=== PATIENT | female | born 1950 | race Caucasian/White ===

== ENCOUNTER 2016-08-12 07:49 | Observation (INO) | payer OTHER ==
[~2016-08-12 07:49] MED LIST: CLINDAMYCIN 900 MG/DEXTROSE 50 ML IV ONE; LR 1,000 ML IV ONE; PHENAZOPYRIDINE HCL 200 MG TAB PO ONE; SCOPOLAMINE HYDROBROMIDE 1.5 MG PATCH TD ONE; levOFLOXACIN 500 MG/DEXTROSE 100 ML IV ONE
[2016-08-12] MEDS ORDERED: SCOPOLAMINE HYDROBROMIDE 1.5 MG PATCH TD ONE (08:09)
[2016-08-12] MEDS ORDERED: PHENAZOPYRIDINE HCL 200 MG TAB ONE (08:09)
[2016-08-12] MEDS ORDERED: LIDOCAINE 1% 5 ML SDV ID PRN (08:59)
[2016-08-12] MEDS ORDERED: LR 1,000 ML IV ONE (08:59)
[2016-08-12] MEDS ORDERED: CLINDAMYCIN 900 MG/DEXTROSE/50 ML BAG IV ONE (09:08)
[2016-08-12] MEDS ORDERED: levOFLOXACIN 500 MG/DEXTROSE/100 ML BAG IV ONE (09:09)
[2016-08-12] MEDS ORDERED: BUPIVACAINE/EPI 0.5% 30 ML SDV ONE (09:40)
[2016-08-12] MEDS ORDERED: SKIN ADHESIVE (DERMABOND) 1 EACH TP ONE (09:40)
[2016-08-12] MEDS ORDERED: MIDAZOLAM 2 MG/2 ML VIAL ONE (09:45)
[2016-08-12] MEDS ORDERED: PROPOFOL/EMULSION 500 MG/50 ML BOTTLE IV ONE ×3 (10:01→10:40)
[2016-08-12] MEDS ORDERED: fentaNYL 250 MCG/5 ML INJ ONE (10:02)
[2016-08-12] MEDS ORDERED: ROCURONIUM 100 MG/10 ML VIAL ONE (12:14)
[2016-08-12] MEDS ORDERED: KETOROLAC 30 MG/1 ML SDV ONE (12:15)
[2016-08-12] MEDS ORDERED: LIDOCAINE 2% 5 ML SDV ONE (12:15)
[2016-08-12] MEDS ORDERED: DEXAMETHASONE 4 MG/ML VIAL ONE (12:15)
[2016-08-12] MEDS ORDERED: ONDANSETRON 4 MG/2 ML VIAL ONE ×2 (12:15→12:58)
[2016-08-12] MEDS ORDERED: SALMETEROL IH PRN (12:34)
[2016-08-12] MEDS ORDERED: ALBUTEROL 60 PUFFS/8 GM MDI IH PRN (12:34)
[2016-08-12] MEDS ORDERED: FLUTICASONE IH PRN (12:34)
[2016-08-12] MEDS ORDERED: clonazePAM 0.5 MG TAB PO PRN (12:34)
[2016-08-12] MEDS ORDERED: DIAZEPAM 10 MG/2 ML SYR IVP PRN (12:35)
[2016-08-12] MEDS ORDERED: ONDANSETRON 4 MG/2 ML VIAL IVP PRN (12:35)
[2016-08-12] MEDS ORDERED: HYDROCODONE/APAP 5/325 TAB PO PRN (12:35)
--- NOTE | 2016-08-12 12:43 | POSTOPPROG ---
Post Op Note Date of Operation: 08/12/16 Surgeon: Berto Ospina Policyholder Information Clerk: Solange Vora Anesthesia: GET(General Endotracheal) Pre-op Diagnosis: Uterovaginal prolapse, stress incontinence Post-op Diagnosis: Same Procedure: Robotic hyst, BSO, sacrocolpopexy, TOT sling, cysto Findings: Normal ureteral function at end of case Inf/Abcess present in the surg proc area at time of surgery?: No EBL: Minimal Complications: None Specimen(s): Uterus, no cervix, bilat tubes and ovaries
[2016-08-12] MEDS ORDERED: PROMETHAZINE HCL 25 MG/ML INJ ONE (12:48)
[2016-08-12] MEDS ORDERED: LR 1,000 ML IV SCH (13:00)
[2016-08-12] MEDS ORDERED: fentaNYL 100 MCG/2 ML INJ ONE (13:02)
--- NOTE | 2016-08-12 13:53 | GOP ---
[f rep st] OPERATIVE REPORT DATE OF OPERATION: SURGEON: Berto Ospina MD FULL STACK SOFTWARE ENGINEER: Solange Vora CFA ANESTHESIA: General. PREOPERATIVE DIAGNOSIS: 1. Uterine prolapse. 2. Cystocele. 3. Rectocele. 4. Stress urinary incontinence. POSTOPERATIVE DIAGNOSIS: 1. Uterine prolapse. 2. Cystocele. 3. Rectocele. 4. Stress urinary incontinence. PROCEDURE PERFORMED: 1. Robotic-assisted laparoscopic hysterectomy, bilateral salpingo-oophorectomy. 2. Robotic-assisted laparoscopic sacrocervicopexy with mesh. 3. Repair of cystocele and rectocele. 4. Transobturator sling. 5. Cystoscopy. FINDINGS: SPECIMENS: Uterus, bilateral tubes, and ovaries. ESTIMATED BLOOD LOSS: Scant. DESCRIPTION OF PROCEDURE: The patient was taken to the operating room where she was identified. Gen eral anesthesia was administered and found to be adequate. She was placed in the lithotomy position and prepared and draped in the normal sterile fashion. A Loco catheter was placed in her bladder. A 1 cm infraumbilical incision was made with a scalpel. The Veress needle with a CO2 gas flowing was advanced into the peritoneal cavity. The abdomen was insufflated with carbon dioxide gas. The 12 m m trocar followed by the laparoscope were then inserted. The upper abdomen was unremarkable. Two la teral ports were placed on either side under direct visualization. The patient was then placed in Tr endelenburg position and the DA Keila robot docked on the left side. The instruments were then broug ht into the abdominal cavity under direct visualization. The uterus, tubes and ovaries were grossly unremarkable. The left round ligament was divided. The a nterior leaf of the broad ligament was incised to the bifurcation of the left common iliac vessels. A window was created in the posterior leaf to skeletonize the infundibulopelvic vessels. They were t hen cauterized and transected. The anterior leaf of the broad ligament was then incised over the lef t uterine vessels and across the cervix. The bladder was dissected off the cervix and upper vagina. The left uterine vasculature was then cauterized and transected. The exact same procedure was perfo rmed on the patient's right side. The uterus and upper 3/4 of the cervix were then amputated from th e lower 4th of the cervix with the hot ricardo. The uterus had been bivalved to aid in removal throug h the umbilicus. The specimen was then placed in the right upper quadrant for later removal. The Colpo-Probe was placed in the vagina. The bladder was further dissected off the anterior vaginal wall down to the level of the bladder neck. The rectovaginal space was then entered and the rectum dissected off the posterior vaginal wall down to the level of the perineal body. Measurements were t hen obtained and the mesh trimmed to size. The sacral promontory was identified and the overlying peritoneum was incised. The fat pad was gentl y dissected off the anterior longitudinal ligament. The peritoneal incision was then extended along the right paracolic gutter medial to the right ureter and lateral to the sigmoid colon until it met t he rectovaginal opening. The mesh was then brought into the abdominal cavity. Three sutures of 4-0 Pacoima-Saad were used to attach the distal posterior mesh to the perineal body. Two additional rows of Pacoima-Saad sutures were placed posteriorly to resolve the rectocele. The anterior arm of the mesh was then sutured down to the level of the bladder neck and laterally to the paravaginal tissue with 3 row s of Pacoima-Saad sutures as well. This then resolved the cystocele. The Colpo-Probe was then removed. The sacral arm of the mesh was brought up to the sacrum and the tension adjusted. I then scrubbed b ack into the case to examine the vagina. The tension was further adjusted to resolve the cystocele a nd rectocele without undue tension on the vagina. Three sutures of 2-0 Pacoima-Saad were used to attach the sacral arm of the mesh to the anterior longitudinal ligament at the level of the upper sacral 1 b mary below the intervertebral disc space. The excess mesh was then trimmed. The pelvis was irrigated with sterile saline and hemostasis was present. 3-0 VLock 90 suture was used to close the peritoneu m over the entire mesh. The robot was then undocked. The specimen removed through the umbilicus. T he fascia was closed with 0 Vicryl, skin with 4-0 Monocryl and surgical adhesive. Attention was then turned to the sling portion of the procedure. A mid urethral incision was made wi th a scalpel. Tunnels were created bilaterally up to the obturator internus muscles. Skin incisions were made over the obturator notches. The Halo trocar was placed through the left skin incision and redirected around the ischial pubic rami and out through the vaginal incision using a vaginal finger as a guide. The lateral sulcus was examined and no evidence of vaginal injury had occurred. The sl ing was then attached and brought out along the same course. The exact same procedure was performed on the patient's right side. The sling was then adjusted to allow a small mid urethral gap. The vag inal epithelium was closed with 2-0 Vicryl and the skin with 4-0 Monocryl. Cystoscopy was then performed. Both ureters had vigorous jets of urine. There was no evidence of bl adder nor urethral injury seen. No mesh or suture was seen within the bladder nor urethra. Vaginal packing was then placed followed by the Loco catheter. Anesthesia was reversed and the patient take n to the PACU awake and in stable condition. COMPLICATIONS: None. DISPOSITION: Patient stable to PACU. /[id number]/MODL
[2016-08-12] MEDS ORDERED: GABAPENTIN 100 MG CAP PO SCH (18:00)
[2016-08-12] MEDS: KETOROLAC 15 MG/1 ML SDV IVP SCH ×2 (18:08→23:39)
[2016-08-12] MEDS ORDERED: GABAPENTIN 300 MG CAP PO SCH (19:00)
[2016-08-12] MEDS ORDERED: MELATONIN 3 MG TAB PO SCH (21:00)
[2016-08-13 00:30] VITALS: RESP 16
[2016-08-13] MEDS: KETOROLAC 15 MG/1 ML SDV IVP SCH (06:05)
[2016-08-13] MEDS ORDERED: PANTOPRAZOLE SODIUM 40 MG TAB PO SCH (09:00)
--- NOTE | 2016-08-13 09:05 | SOAPPROG ---
SOAP Progress Note Assessment/Plan: Assessment: Carmen Doing well, no issues. Plan: 08/13/16 09:02 [address]charge home. Instructions reviewed. Has appt in 2 weeks. Subjective: No complaints. Pain controlled. Ambulating, voiding, tolerating a general diet. Has a mild head ache. Objective: Vital Signs Temp Pulse Resp BP Pulse Ox 37.3 C 76 16 105/63 95 08/13/16 05:00 08/13/16 05:00 08/13/16 05:00 08/13/16 05:00 08/13/16 05:00 08/12/16 08/13/16 08/14/16 05:59 05:59 05:59 Intake Total 2400 Output Total 2625 Balance -225 - Pending Discharge Pending Discharge Within 24 Hours: Yes Pending Discharge Date: 08/14/16 Pending Discharge Time: 11:00 Physical Exam - Physical Exam General Appearance: WD/WN, alert, no apparent distress Respiratory: lungs clear Cardiac/Chest: regular rate, rhythm Abdomen: normal bowel sounds, non-tender, soft (Incisions clean, dry, and intact.) ICD10 Worksheet Patient Problems: Problems Problem Status Diagnosed Cystocele Acute Rectocele Acute Second degree uterine prolapse Acute - ICD10 Problem Qualifiers (1) Second degree uterine prolapse (2) Cystocele (3) Rectocele
[2016-08-13 09:32] VITALS: BP 103/58; PULSE 98; TEMP 98.1; O2SAT 96
--- NOTE | 2016-08-14 14:46 | GDS ---
[f rep st] DISCHARGE SUMMARY DISCHARGE DIAGNOSIS: 1. Uterine prolapse. 2. Cystocele. 3. Rectocele. 4. Stress urinary incontinence. PROCEDURES: 1. Robotic-assisted laparoscopic hysterectomy with bilateral salpingo-oophorectomy. 2. Robotic-assisted laparoscopic sacrocervicopexy with mesh. 3. Repair of cystocele and rectocele. 4. Transobturator sling. 5. Cystoscopy. HISTORY: The patient is a 65-year-old female with symptomatic uterovaginal prolapse and stress incon tinence. HOSPITAL COURSE: She was taken to the operating room on 08/12/2016 where she underwent the above-men tioned procedures without complications. Her postoperative course was uneventful. The morning after surgery, she was ambulating, voiding, and tolerating a general diet. She was discharged home on postoperative day #1 in good condition. MEDICATIONS: Included Montchanin and ibuprofen for pain. FOLLOWUP: She is to follow up in the office 2 weeks after discharge for an incision check. /[id number]/MODL
== END 2016-08-13 11:40 | disposition home or self-care (01) ==
LOC: F1N 07:49 → FOB 14:10
PROVIDERS: ADMIT Obstetrics & Gynecology; ATTEND Obstetrics & Gynecology
PROC: 0UTC4ZZ Resection of Cervix, Percutaneous Endoscopic Approach (ICD-10-PCS; principal; 2016-08-12 09:30)
PROC: 8E0W4CZ Robotic Assisted Procedure of Trunk Region, Percutaneous Endoscopic Approach (ICD-10-PCS; principal; 2016-08-12 09:30)
PROC: 0TUC0JZ Supplement Bladder Neck with Synthetic Substitute, Open Approach (ICD-10-PCS; principal; 2016-08-12 09:30)
PROC: 0UUG4JZ Supplement Vagina with Synthetic Substitute, Percutaneous Endoscopic Approach (ICD-10-PCS; principal; 2016-08-12 09:30)
PROC: 0UT74ZZ Resection of Bilateral Fallopian Tubes, Percutaneous Endoscopic Approach (ICD-10-PCS; principal; 2016-08-12 09:30)
PROC: 0UT94ZZ Resection of Uterus, Percutaneous Endoscopic Approach (ICD-10-PCS; principal; 2016-08-12 09:30)
PROC: 0UT24ZZ Resection of Bilateral Ovaries, Percutaneous Endoscopic Approach (ICD-10-PCS; principal; 2016-08-12 09:30)
DX: N81.2 Incomplete uterovaginal prolapse (principal); N81.6 Rectocele; N39.3 Stress incontinence (female) (male)
CPT/HCPCS: 57288; 57425; 58542; G0378; C1763; C1771; J1100; J1885; J1956; J2250; J2405; J2550; J2704; J3010

== ENCOUNTER → 2016-10-02 | Outpatient (CLI) | payer OTHER | LOC: CIMAGING 09:36 | PROVIDERS: ATTEND Internal Medicine | DX: R91.1 Solitary pulmonary nodule (principal) | CPT/HCPCS: 71250-PO ==

== ENCOUNTER → 2017-07-02 | Outpatient (CLI) | payer OTHER, MEDICARE | LOC: FIMAGING 11:12 | PROVIDERS: ATTEND Internal Medicine | DX: Z12.31 Encounter for screening mammogram for malignant neoplasm of breast (principal) | CPT/HCPCS: G0202 ==

== ENCOUNTER → 2017-12-08 | Outpatient (CLI) | payer OTHER, MEDICARE | LOC: FIMAGING 15:29 | PROVIDERS: ATTEND Internal Medicine | DX: S83.281A Other tear of lateral meniscus, current injury, right knee, initial encounter (principal); M25.461 Effusion, right knee; M71.21 Synovial cyst of popliteal space [Baker], right knee ==

== ENCOUNTER → 2018-08-19 | Outpatient (CLI) | payer OTHER, MEDICARE | LOC: FIMAGING 13:41 | PROVIDERS: ATTEND Internal Medicine | DX: Z12.31 Encounter for screening mammogram for malignant neoplasm of breast (principal) ==